=== PATIENT | male | born 1985 | race Two or more races ===

== ENCOUNTER → 2020-10-15 | Emergency (ER) | payer OTHER ==
[~2020-10-15] VITALS: Ht 175.3 cm; Wt 70.3 kg
== END | disposition home or self-care (01) ==
LOC: ER 15:38
DX: S81.812A Laceration without foreign body, left lower leg, initial encounter (principal); W45.8XXA Other foreign body or object entering through skin, initial encounter; Y93.89 Activity, other specified; Y92.018 Other place in single-family (private) house as the place of occurrence of the external cause

== ENCOUNTER 2020-10-22 06:56 | Emergency (ER) | payer OTHER ==
[~2020-10-22] VITALS: Ht 175.3 cm; Wt 68.0 kg
== END 2020-10-22 12:20 ==
LOC: ER 06:56
DX: Z48.02 Encounter for removal of sutures (principal)